=== PATIENT | male | born 1990 | race American Indian/Alaskan Native ===

== ENCOUNTER 2018-11-29 22:19 | Emergency (ER) | payer OTHER ==
[2018-11-29 22:27] VITALS: BP 150/79; PULSE 105; RESP 20; TEMP 103; O2SAT 97
--- NOTE | 2018-11-29 23:01 | C.PDOC ---
History Of Present Illness 28 year old male presents complaining of sore throat with fever for the past 4 days. Patient has been taking tylenol at home. Denies other complaints. Time Seen by Provider: 11/29/18 22:42 Chief Complaint (Nursing): Fever History Per: Patient History/Exam Limitations: no limitations Onset/Duration Of Symptoms: Days (4) Current Symptoms Are (Timing): Still Present Location Of Pain: Throat Sick Contacts (Context): None Associated Symptoms: Fever, Sore Throat Recent travel outside of the [place]: No Past Medical History Reviewed: Historical Data, Nursing Documentation, Vital Signs Vital Signs: Last Vital Signs Temp 103 F H 11/29/18 22:32 Pulse 105 H 11/29/18 22:20 Resp 20 11/29/18 22:20 BP 150/79 11/29/18 22:20 Pulse Ox 97 11/29/18 22:20 Primary Care Provider: Miko Chance Surgical History: Appendectomy Family History: States: Unknown Family Hx - Social History Hx Alcohol Use: Yes Hx Substance Use: No - Immunization History Hx Tetanus Toxoid Vaccination: No Hx Influenza Vaccination: No Hx Pneumococcal Vaccination: No Review Of Systems Constitutional: Positive for: Fever ENT: Positive for: Throat Pain. Negative for: Nose Discharge, Nose Congestion Respiratory: Negative for: Cough Gastrointestinal: Negative for: Nausea, Vomiting Skin: Negative for: Rash Physical Exam - Physical Exam Appears: Well, Non-toxic, No Acute Distress Skin: Normal Color, Warm, No Rash Head: Atraumatic, Normacephalic Eye(s): bilateral: Normal Inspection Ear(s): Bilateral: Normal Nose: Normal Oral Mucosa: Moist Throat: Other (Enlarged tonsils bilaterally with obvious exudates. Uvula midline, airway patent, tolerating secretions. No muffled voice.) Neck: Normal ROM, Supple Neurological/Psych: Oriented x3, Normal Speech ED Course And Treatment O2 Sat by Pulse Oximetry: 97 (Room air) Pulse Ox Interpretation: Normal Medical Decision Making Medical Decision Making: Patient swabbed for strep and started on amoxicillin for tonsillitis. 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 - Scribe Statement The provider has reviewed the documentation as recorded by the Scribe Uche Jean All medical record entries made by the Víctoribedyta were at my direction and personally dictated by me. I have reviewed the chart and agree that the record accurately reflects my personal performance of the history, physical exam, medical decision making, and the department course for this patient. I have also personally directed, reviewed, and agree with the discharge instructions and disposition.
== END 2018-11-29 23:16 | disposition home or self-care (01) ==
LOC: C.ER 22:19
DX: J03.90 Acute tonsillitis, unspecified (principal)